=== PATIENT | male | born 1990 | race Two or more races ===

== ENCOUNTER 2022-09-19 14:56 | Emergency (ER) | payer SELFPAY ==
[2022-09-19] MEDS ORDERED: ASPirin 325 MG TAB PO ONE (15:00)
[2022-09-19] MEDS ORDERED: NITROGLYCERIN 0.4 MG SL TAB SL ONE (15:15)
[2022-09-19 15:37] LABS: Potassium 4.2 mmol/L (3.5-5.1)
[2022-09-19 15:50] LABS: Albumin 4.3 g/dL (3.4-5.0); BUN/Creatinine Ratio 7.6 (10.0-20.0); Calcium 9.3 mg/dL (8.5-10.1)
[2022-09-19] MEDS ORDERED: PANT40TA2 PO (16:08)
[2022-09-19 16:35] LABS: Basophils # (auto) 0 10 ^3/uL (0-0.2); Basophils % (auto) 0.7 % (0.0-2.0); Eosinophils # (auto) 0.2 10 ^3/uL (0-0.8); Eosinophils % (auto) 3.1 % (0.0-7.0); Hematocrit 50.1 % (41.0-53.0); Hemoglobin 17.2 g/dL (13.5-17.5); Lymphocytes # (auto) 1.6 10 ^3/uL (0.4-5.4); Lymphocytes % (auto) 28.3 % (10.0-50.0); Mean Corpuscular Hemoglobin 31.6 pg (28.0-32.0); Mean Corpuscular Hgb Conc. 34.3 g/dL (32.0-36.0); Mean Corpuscular Volume 92.1 fL (80.0-100.0); Monocytes # (auto) 0.5 10 ^3/uL (0-1.3); Monocytes % (auto) 9.2 % (0.0-12.0); Neutrophils # (auto) 3.3 10 ^3/uL (1.6-8.6); Neutrophils % (auto) 58.7 % (37.0-80.0); Nucleated Red Blood Cells % 0.1 %; Red Blood Cells 5.44 10^6/uL (4.5-5.90); Red Cell Distribution Width 13.5 % (11.8-14.3); White Blood Cell 5.6 10^3/uL (4.4-10.8)
[2022-09-19 19:07] VITALS: BP 126/99
== END 2022-09-19 19:10 | disposition home or self-care (01) ==
LOC: ER 14:56
DX: K29.70 Gastritis, unspecified, without bleeding (principal); R07.89 Other chest pain; F10.90 Alcohol use, unspecified, uncomplicated
CPT/HCPCS: 36415; 71045; 80053; 84484; 85025; 93005